=== PATIENT | female | born 1970 | race Caucasian/White ===

== ENCOUNTER 2017-06-01 22:02 | Emergency (ER) | payer SELFPAY ==
[2017-06-01 23:43] LABS: APPEARANCE HAZY (CLEAR); BILIRUBIN NEGATIVE (NEGATIVE); COLOR YELLOW (YELLOW); GLUCOSE NEGATIVE (NEGATIVE); KETONE NEGATIVE (NEGATIVE); LEUKOCYTE ESTERASE TRACE (NEGATIVE); NITRITE NEGATIVE (NEGATIVE); PROTEIN NEGATIVE (NEGATIVE); SPECIFIC GRAVITY 1.015 (1.005-1.020); UROBILINOGEN NORMAL (NORMAL)
[2017-06-01 23:44] LABS: BACTERIA MODERATE /hpf (NONE SEEN); EPITHELIAL CELLS 0-5 /hpf (0-5); RED CELLS - URINE 0-5 /hpf (0-5); WHITE CELLS - URINE 0-5 /hpf (0-5)
[2017-06-01 23:45] LABS: AMORPHOUS SEDIMENT <1+ /lpf (NONE SEEN)
[2017-06-02 00:31] LABS: BASOPHILS 0.5 % (0-2); EOSINOPHILS 1.7 % (0-7); HEMATOCRIT 35.2 % (36.0-48.0); IMMATURE GRANULOCYTES 0.2 % (0-5); LYMPHOCYTES 24.8 % (15-50); MCH 23.5 pg (26.0-34.0); MCHC 31.3 g/dL (31.0-37.0); MCV 75.1 fL (80.0-100.0); MONOCYTES 6.3 % (2-11); NEUTROPHILS 66.5 % (40-80); PLATELET COUNT 336 10x3/uL (130-400); RBC 4.69 10x6/uL (4.00-5.40); RDW 18.6 % (11.5-14.5); WBC 10.6 10x3/uL (4.8-10.8)
[2017-06-02 00:46] LABS: ALBUMIN 3.2 g/dL (3.4-5.0); BILIRUBIN - TOTAL 0.33 mg/dL (0.2-1.3); CALCIUM 8.6 mg/dL (8.5-10.1); CARBON DIOXIDE 26.8 mmol/L (21.0-32.0); CREATININE - SERUM 0.9 mg/dL (0.6-1.3); POTASSIUM - SERUM 3.8 mmol/L (3.5-5.1); PROTEIN - SERUM 7.6 g/dL (6.4-8.2)
== END 2017-06-02 01:21 | disposition home or self-care (01) ==
LOC: D.ER 22:02
PROVIDERS: Emergency Medicine
DX: R10.9 Unspecified abdominal pain (principal); R11.2 Nausea with vomiting, unspecified; F17.200 Nicotine dependence, unspecified, uncomplicated

== ENCOUNTER 2017-06-06 22:40 | Emergency (ER) | payer SELFPAY ==
[2017-06-06 23:08] LABS: BASOPHILS 0.3 % (0-2); EOSINOPHILS 2.5 % (0-7); HEMATOCRIT 36.5 % (36.0-48.0); HEMOGLOBIN 11.4 g/dL (12-16); IMMATURE GRANULOCYTES 0.3 % (0-5); MCH 23.6 pg (26.0-34.0); MCHC 31.2 g/dL (31.0-37.0); MCV 75.6 fL (80.0-100.0); MEAN PLATELET VOLUME 9.3 fL (7.4-10.4); MONOCYTES 6.1 % (2-11); NEUTROPHILS 56.8 % (40-80); RBC 4.83 10x6/uL (4.00-5.40); RDW 18.4 % (11.5-14.5)
[2017-06-06 23:09] LABS: APPEARANCE CLEAR (CLEAR); BILIRUBIN NEGATIVE (NEGATIVE); COLOR YELLOW (YELLOW); GLUCOSE NEGATIVE (NEGATIVE); KETONE SMALL mg/dL (NEGATIVE); LEUKOCYTE ESTERASE NEGATIVE (NEGATIVE); NITRITE NEGATIVE (NEGATIVE); PLATELET COUNT 412 10x3/uL (130-400); PROTEIN NEGATIVE (NEGATIVE); UROBILINOGEN NORMAL (NORMAL)
[2017-06-06 23:49] LABS: ALBUMIN 3.6 g/dL (3.4-5.0); ALKALINE PHOSPHATASE 99 U/L (46-116); ALT (SGPT) 12 U/L (10-68); CALC OSMOLALITY 274 mosm/kg (275-300); CALCIUM 9.1 mg/dL (8.5-10.1); CARBON DIOXIDE 22.5 mmol/L (21.0-32.0); CHLORIDE - SERUM 104 mmol/L (98-107); CREATININE - SERUM 0.8 mg/dL (0.6-1.3); GLUCOSE 114 mg/dL (74-106); LIPASE 95 U/L (73-393); POTASSIUM - SERUM 3.4 mmol/L (3.5-5.1); SODIUM 138 mmol/L (136-145); UREA NITROGEN 8 mg/dL (7-18); eGFR NON AFRICAN AMERICAN 81 mL/min (90-120)
== END 2017-06-07 00:13 | disposition home or self-care (01) ==
LOC: D.ER 22:40
PROVIDERS: Emergency Medicine
DX: K80.50 Calculus of bile duct without cholangitis or cholecystitis without obstruction (principal); R11.0 Nausea; F17.200 Nicotine dependence, unspecified, uncomplicated

== ENCOUNTER 2017-12-22 04:52 | Inpatient (IN) | payer SELFPAY ==
[2017-12-22] VITALS (14 sets, daily range): BP systolic 117–153; BP diastolic 63–109; BMI 25.3
[~2017-12-22] VITALS: Ht 165.1 cm; Wt 68.9 kg
--- NOTE | ~2017-12-22 | EC ---
PATIENT:MYLA PAZ DATE OF SERVICE: 12/22/17 SEX: F MEDICAL RECORD: [id number] DATE OF : [birth year] LOCATION:[place] [id number] AGE OF PATIENT: 47 ADMISSION DATE: 12/22/17 REFERRING PHYSICIAN: INTERPRETING PHYSICIAN: MUSTAPHA CAMARGO MD ECHOCARDIOGRAM REPORT ECHO CHARGES 4 ECHO COMPLETE CLINICAL DIAGNOSIS: ELVATED CARDIAC LABS/ ASSESS EF AND VALVES ECHOCARDIOGRAPHIC MEASUREMENTS (adult normal given) AC root (d.<3.7cm) cm LV Septum d (<1.2 cm> 1.7 cm Valve Excursion cm LV Septum (systole) 1.9 cm Left Atria (s.<4.0cm> 3.2 cm LVPW d(<1.2cm) 1.4 cm RV (d.<2.3cm) 2.7 cm LVPW (sytole) 1.9 cm LV diastole(<5.6CM) 5.2 cm MV E-F(>70mm/sec) cm LV systole 3.5 cm LVOT Diameter 1.5 cm MV exc.(>10mm) cm Est.ejection fraction (50-75%) % Pericardial Effusion N DOPPLER: LVIT cm/sec A 90.0 cm/sec E 80.0 cm/sec LA cm/sec RVSP 19 mmHg LVOT 136 cm/sec AOP1/2T m/s Asc. Ao 161 cm/sec RVOT cm/sec RA cm/sec PA cm/sec AV Gradient Peak 10.39mmHg AV Mean 5.43 mmHg AV Area 1.5 cm MV Gradient Peak 3.88 mmHg MV Mean 1.34 mmHg MV Area cm COMMENTS: Production Hand: Sanjiv LAZAR Marine Photographer: 1 Dr. Camargo TAPE# PACS DATE OF SERVICE: 12/23/2017 PROCEDURE: Echocardiogram. FINDINGS: 1. Left ventricular chamber size is within normal limits. Left ventricular systolic function is normal. Overall ejection fraction estimated at 55%. 2. Left atrium, right atrium, and right ventricular chamber sizes are within normal limits. 3. Valvular structures have normal structure and motion. ECHOCARDIOGRAM REPORT [id number] MYLA PAZ 4. Doppler interrogation reveals [id number] mitral regurgitation, mild tricuspid regurgitation, no other valvular insufficiency or stenosis and pulmonary systolic pressure is normal estimated at 19 mmHg. 5. No evidence of pericardial effusion or left ventricular thrombus. TRANSINT:[id number] Voice Confirmation ID: [id number] DOCUMENT ID: [id number] MUSTAPHA CAMARGO MD at 1202 CC: [id number] DICTATION DATE: 12/23/17 1234 PUBLIC SERVICE DIRECTOR: 12/23/17 1246 DIS IN 12/25/17 [place] [id number] [place] [id number]
--- NOTE | ~2017-12-22 | CN ---
PATIENT NAME:MYLA PAZ MEDICAL RECORD: [id number] : [birth year] LOCATION:[facility] ADMIT DATE: 12/22/17 ACCOUNT: [id number] CONSULTING PHYSICIAN: MUSTAPHA ESPINOZA MD REFERRING PHYSICIAN: PHILIPPE SAHA MD DATE OF CONSULTATION: 12/23/2017 CARDIOLOGY CONSULTATION DIAGNOSES: 1. Cerebrovascular accident. 2. Elevated troponin. HISTORY OF PRESENT ILLNESS: Ms. Paz has no cardiac history. She was found down. Head CT reveals a large CVA. She is unresponsive, intubated. Echocardiogram revealed no cardiac source of neurologic emboli, normal LV function. Her EKG is with no acute ST-T abnormalities. Systolic blood pressures in the 150s. Pulse rate in the 90s. She has had no significant dysrhythmias. PHYSICAL EXAMINATION: GENERAL APPEARANCE: Well-nourished, well-developed, appears stated age. Level of distress, comfortable. PSYCHIATRIC: Mental status, alert, normal affect. Orientation, oriented to time, place and person. EYES: Lids and conjunctiva, noninjected. No discharge, no pallor. ENT: Lips, teeth, gums, normal dentition. Oropharynx, no cyanosis, no pallor. NECK: Carotid arteries, bilateral normal upstroke, no bruits, no thrills. JUGULAR VEINS: No jugular venous pressure or distention. CERVICAL LYMPH NODES: Nontender, nonenlarged. THYROID: Not enlarged. Nontender. No nodules. LUNGS: Respiratory effort, unlabored. CHEST: Normal curvature. No thoracic deformity. No chest wall tenderness. Percussion, resonant. Auscultation, clear. No wheezes, no rales, no rhonchi. CARDIOVASCULAR: Precordial exam, nondisplaced. No heaves or pericardial thrills. Rate and rhythm, regular. Heart sounds, normal S1, normal S2. No S3, no gallop, no rub. Systolic murmur, not heard. Diastolic murmur, not heard. EXTREMITIES: No cyanosis, no edema. Peripheral pulses, full and equal in all extremities, except as noted. No bruits appreciated. ABDOMEN: Soft, nondistended. Normal aorta. No bruit. Nontender. No masses. Liver, nontender, no hepatomegaly. Spleen, nontender, no splenomegaly. MUSCULOSKELETAL: No joint tenderness. No joint swelling. No erythema. NEUROLOGICAL: Normal gait, normal strength, normal tone. SKIN: Warm and dry. OVERALL IMPRESSION: Large CVA, not from cardiac source. At this time, no other cardiac treatment or workup is necessary. TRANSINT:[id number] Voice Confirmation ID: [id number] DOCUMENT ID: [id number] CONSULT REPORT [id number] MYLA PAZ, MUSTAPHA HURST at 1202 CC: [id number] DICTATION DATE: 12/23/17 1241 REHABILITATION THERAPY AIDE: 12/23/17 1251 DIS IN 12/25/17 [facility] [address] [place] [address]
[2017-12-22 05:59] LABS: APTT 27.3 SECONDS (22.8-39.4); BASOPHILS 0.4 % (0-2); EOSINOPHILS 2.6 % (0-7); HEMATOCRIT 37.5 % (36.0-48.0); HEMOGLOBIN 11.2 g/dL (12-16); IMMATURE GRANULOCYTES 0.2 % (0-5); INR 0.98 (0.85-1.17); LYMPHOCYTES 30.6 % (15-50); MCH 21.5 pg (26.0-34.0); MCHC 29.9 g/dL (31.0-37.0); MEAN PLATELET VOLUME 10.1 fL (7.4-10.4); MONOCYTES 6.5 % (2-11); NEUTROPHILS 59.7 % (40-80); PLATELET COUNT 346 10x3/uL (130-400); PROTIME 12.6 SECONDS (11.6-15.0); RBC 5.21 10x6/uL (4.00-5.40); RDW 18.4 % (11.5-14.5); WBC 12.8 10x3/uL (4.8-10.8)
[2017-12-22 06:00] LABS: D-DIMER-QUANTITATIVE 1.01 ug/mLFEU (0.20-0.54)
[2017-12-22 06:05] LABS: ALBUMIN 3.4 g/dL (3.4-5.0); ALKALINE PHOSPHATASE 123 U/L (46-116); ALT (SGPT) 15 U/L (10-68); BILIRUBIN - TOTAL 0.33 mg/dL (0.2-1.3); CALC OSMOLALITY 276 mosm/kg (275-300); CALCIUM 8.9 mg/dL (8.5-10.1); CARBON DIOXIDE 22.6 mmol/L (21.0-32.0); CHLORIDE - SERUM 105 mmol/L (98-107); CREATININE - SERUM 0.9 mg/dL (0.6-1.3); GLUCOSE 130 mg/dL (74-106); PROTEIN - SERUM 8.1 g/dL (6.4-8.2); SODIUM 137 mmol/L (136-145); UREA NITROGEN 16 mg/dL (7-18); eGFR NON AFRICAN AMERICAN 71 mL/min (90-120)
[2017-12-22 06:25] LABS: UDS - AMPHET NEGATIVE QUAL (NEGATIVE); UDS - BARB NEGATIVE QUAL (NEGATIVE); UDS - BENZO NEGATIVE QUAL (NEGATIVE); UDS - COCAINE NEGATIVE QUAL (NEGATIVE); UDS - OPIATE NEGATIVE QUAL (NEGATIVE); UDS - PCP NEGATIVE QUAL (NEGATIVE); UDS - THC POSITIVE QUAL (NEGATIVE)
[2017-12-22 06:34] LABS: AMYLASE - SERUM 44 U/L (25-115); CKMB 2.1 U/L (0.0-3.6); CREATINE KINASE 143 UL (21-215); LIPASE 91 U/L (73-393); PRO BNP 138 pg/mL (0-125)
[2017-12-22 06:36] LABS: APPEARANCE CLOUDY (CLEAR); BILIRUBIN NEGATIVE (NEGATIVE); COLOR YELLOW (YELLOW); EPITHELIAL CELLS OCC /hpf (0-5); GLUCOSE NEGATIVE (NEGATIVE); KETONE NEGATIVE (NEGATIVE); NITRITE NEGATIVE (NEGATIVE); PROTEIN 1+ mg/dL (NEGATIVE); RED CELLS - URINE >50 /hpf (0-5); SPECIFIC GRAVITY 1.025 (1.005-1.020); UROBILINOGEN NORMAL (NORMAL); WHITE CELLS - URINE RARE /hpf (0-5)
[2017-12-22 06:37] LABS: BACTERIA FEW /hpf (NONE SEEN)
[2017-12-22 06:47] LABS: TROPONIN-I < 0.017 ng/mL (0.000-0.060)
[2017-12-22 12:13] LABS: CKMB 6.9 U/L (0.0-3.6)
[2017-12-22 12:14] LABS: CREATINE KINASE 691 UL (21-215)
[2017-12-22 17:05] LABS: CKMB 27.4 U/L (0.0-3.6)
[2017-12-22 17:11] LABS: CREATINE KINASE 2645 UL (21-215)
[2017-12-22 17:12] LABS: TROPONIN-I 1.656 ng/mL (0.000-0.060)
[2017-12-22 23:22] LABS: CKMB 32.6 U/L (0.0-3.6)
[2017-12-22 23:46] LABS: CREATINE KINASE 4299 UL (21-215)
[2017-12-23] VITALS (24 sets, daily range): BP systolic 124–169; BP diastolic 74–97; Ht 165.1 cm; Wt 68.9 kg
[2017-12-23 05:11] LABS: BASOPHILS 0.3 % (0-2); EOSINOPHILS 0.1 % (0-7); HEMATOCRIT 34.2 % (36.0-48.0); HEMOGLOBIN 10.3 g/dL (12-16); IMMATURE GRANULOCYTES 0.2 % (0-5); LYMPHOCYTES 25.6 % (15-50); MCH 21.5 pg (26.0-34.0); MCHC 30.1 g/dL (31.0-37.0); MCV 71.4 fL (80.0-100.0); MEAN PLATELET VOLUME 10.3 fL (7.4-10.4); MONOCYTES 10.2 % (2-11); NEUTROPHILS 63.6 % (40-80); RBC 4.79 10x6/uL (4.00-5.40); RDW 17.9 % (11.5-14.5); WBC 15.2 10x3/uL (4.8-10.8)
[2017-12-23 05:22] LABS: PLATELET COUNT 264 10x3/uL (130-400)
[2017-12-23 05:31] LABS: ALKALINE PHOSPHATASE 92 U/L (46-116); CALCIUM 8.3 mg/dL (8.5-10.1); CARBON DIOXIDE 20.5 mmol/L (21.0-32.0); CHLORIDE - SERUM 101 mmol/L (98-107); CREATININE - SERUM 0.7 mg/dL (0.6-1.3); GLUCOSE 127 mg/dL (74-106); PROTEIN - SERUM 7.3 g/dL (6.4-8.2); SODIUM 134 mmol/L (136-145); eGFR NON AFRICAN AMERICAN > 90 mL/min (90-120)
[2017-12-23 05:53] LABS: ALT (SGPT) 36 U/L (10-68); BILIRUBIN - TOTAL 0.61 mg/dL (0.2-1.3); CALC OSMOLALITY 268 mosm/kg (275-300); POTASSIUM - SERUM 3.2 mmol/L (3.5-5.1); UREA NITROGEN 11 mg/dL (7-18)
[2017-12-24] VITALS (24 sets, daily range): BP systolic 119–145; BP diastolic 73–91
[2017-12-24 04:24] LABS: BASOPHILS 0.2 % (0-2); EOSINOPHILS 0.1 % (0-7); HEMATOCRIT 35.8 % (36.0-48.0); HEMOGLOBIN 10.8 g/dL (12-16); IMMATURE GRANULOCYTES 0.3 % (0-5); LYMPHOCYTES 28.3 % (15-50); MCH 21.5 pg (26.0-34.0); MCHC 30.2 g/dL (31.0-37.0); MCV 71.3 fL (80.0-100.0); MEAN PLATELET VOLUME 9.6 fL (7.4-10.4); MONOCYTES 9.9 % (2-11); NEUTROPHILS 61.2 % (40-80); PLATELET COUNT 311 10x3/uL (130-400); RBC 5.02 10x6/uL (4.00-5.40); RDW 17.9 % (11.5-14.5); WBC 18.2 10x3/uL (4.8-10.8)
[2017-12-24 04:25] LABS: ALKALINE PHOSPHATASE 76 U/L (46-116); ALT (SGPT) 76 U/L (10-68); CALC OSMOLALITY 271 mosm/kg (275-300); CALCIUM 8.6 mg/dL (8.5-10.1); CARBON DIOXIDE 21.5 mmol/L (21.0-32.0); CHLORIDE - SERUM 102 mmol/L (98-107); CREATININE - SERUM 0.8 mg/dL (0.6-1.3); GLUCOSE 122 mg/dL (74-106); POTASSIUM - SERUM 3.8 mmol/L (3.5-5.1); PROTEIN - SERUM 7.4 g/dL (6.4-8.2); SODIUM 136 mmol/L (136-145); UREA NITROGEN 10 mg/dL (7-18); eGFR NON AFRICAN AMERICAN 81 mL/min (90-120)
[2017-12-25] VITALS (19 sets, daily range): BP systolic 106–162; BP diastolic 52–99
[2017-12-25 09:39] LABS: BASOPHILS 0.2 % (0-2); EOSINOPHILS 0.5 % (0-7); HEMATOCRIT 32.2 % (36.0-48.0); HEMOGLOBIN 9.7 g/dL (12-16); IMMATURE GRANULOCYTES 0.2 % (0-5); MCH 21.6 pg (26.0-34.0); MCHC 30.1 g/dL (31.0-37.0); MCV 71.7 fL (80.0-100.0); MEAN PLATELET VOLUME 9.8 fL (7.4-10.4); NEUTROPHILS 70.1 % (40-80); PLATELET COUNT 248 10x3/uL (130-400); RBC 4.49 10x6/uL (4.00-5.40); WBC 12.6 10x3/uL (4.8-10.8)
[2017-12-25 10:16] LABS: ALBUMIN 2.7 g/dL (3.4-5.0); ALKALINE PHOSPHATASE 63 U/L (46-116); ALT (SGPT) 88 U/L (10-68); BILIRUBIN - TOTAL 0.69 mg/dL (0.2-1.3); CALC OSMOLALITY 276 mosm/kg (275-300); CALCIUM 8.3 mg/dL (8.5-10.1); CARBON DIOXIDE 23.5 mmol/L (21.0-32.0); CHLORIDE - SERUM 105 mmol/L (98-107); CREATININE - SERUM 0.8 mg/dL (0.6-1.3); GLUCOSE 101 mg/dL (74-106); POTASSIUM - SERUM 3.8 mmol/L (3.5-5.1); PROTEIN - SERUM 6.4 g/dL (6.4-8.2); SODIUM 138 mmol/L (136-145); eGFR NON AFRICAN AMERICAN 81 mL/min (90-120)
[2017-12-25 10:17] LABS: UREA NITROGEN 15 mg/dL (7-18)
== END 2017-12-25 19:29 | disposition hospice, inpatient (51) | DRG 208 ==
LOC: D.ER 04:52 → D.ICU 09:17
PROVIDERS: Family Medicine; Internal Medicine Nephrology
PROC: 0BH17EZ Insertion of Endotracheal Airway into Trachea, Via Natural or Artificial Opening (ICD-10-PCS; principal; 2017-12-22)
PROC: 5A1945Z Respiratory Ventilation, 24-96 Consecutive Hours (ICD-10-PCS; 2017-12-22)
PROC: 0T9B70Z Drainage of Bladder with Drainage Device, Via Natural or Artificial Opening (ICD-10-PCS; 2017-12-22)
PROC: 0D9670Z Drainage of Stomach with Drainage Device, Via Natural or Artificial Opening (ICD-10-PCS; 2017-12-22)
PROC: 02HV33Z Insertion of Infusion Device into Superior Vena Cava, Percutaneous Approach (ICD-10-PCS; 2017-12-22)
PROC: B548ZZA Ultrasonography of Superior Vena Cava, Guidance (ICD-10-PCS; 2017-12-22)
DX: J96.00 Acute respiratory failure, unspecified whether with hypoxia or hypercapnia (principal); I63.22 Cerebral infarction due to unspecified occlusion or stenosis of basilar artery; R40.2323 Coma scale, best motor response, extension, at hospital admission; R40.2213 Coma scale, best verbal response, none, at hospital admission; G93.40 Encephalopathy, unspecified; N39.0 Urinary tract infection, site not specified; R40.2133 Coma scale, eyes open, to sound, at hospital admission; R79.89 Other specified abnormal findings of blood chemistry; F12.90 Cannabis use, unspecified, uncomplicated; I10 Essential (primary) hypertension; Z66 Do not resuscitate

== ENCOUNTER 2017-12-25 18:40 | Inpatient (IN) | payer OTHER ==
[~2017-12-25] VITALS: Ht 165.1 cm; Wt 66.5 kg
[2017-12-25 19:00] VITALS: BP 131/61
[2017-12-25 20:56] VITALS: BP 131/61; BMI 24.4
[2017-12-25 23:00] VITALS: BP 109/61
[2017-12-26 03:00] VITALS: BP 91/60
[2017-12-26 07:00] VITALS: BP 104/58
[2017-12-26 11:00] VITALS: BP 110/53
[2017-12-26 16:18] VITALS: BP 126/54
[2017-12-26 20:42] VITALS: Ht 165.1 cm; Wt 66.5 kg
[2017-12-26 21:53] VITALS: BP 137/65
[2017-12-27 02:40] VITALS: BP 105/65
== END 2017-12-27 11:00 | DRG 951 ==
LOC: D.ICU 18:40 → D.M2 12-26 15:34
DX: Z51.5 Encounter for palliative care (principal)